=== PATIENT | female | born 1950 | race Caucasian/White ===

== ENCOUNTER 2024-02-27 16:40 | Emergency (ER) | payer MEDICARE, OTHER, SELFPAY ==
[2024-02-27 16:43] VITALS: BP 149/80
--- NOTE | 2024-02-27 17:14 | ED.GENMED ---
History of Present Illness
General
Chief Complaint: Musculo-Skeletal Complaint
Source: patient
Time Seen by Provider: 02/27/24 17:06
History of Present Illness
History of Present Illness:
73-year-old female presents the emergency room for evaluation of swelling of her left leg. Patient states he comes back yesterday. She has pain with weightbearing. Patient went to an urgent care where they performed some x-rays and said there is
no fracture. However they were concerned about the amount of swelling and referred the patient to the emergency room for an ultrasound to rule out any DVT. Patient does have a seizure disorder has been compliant with her medication.
Phy Exam
Physical Exam
Physical Exam:
General: Awake, Alert, Oriented X3. No acute distress.
Vitals: unremarkable
Head: Atraumatic
Eyes: Pupils equal, EOMI
Throat: Airway intact, no exudates
Neuro: Nonfocal
Skin: Warm, dry, no rash
Extremities: pulses equal b/l, moderate swelling from mid lower leg down to ankle. There is some tenderness to palpation over the lateral ankle. Range of motion is intact. No significant tenderness over the fifth metatarsal.
Course
Orders/Labs/Results
Orders:
Orders
02/27/24 17:14
US Periph Venous LOWER Ext LT Urgent
Comment:
Reason For Exam: swelling, recent injury
02/27/24 19:53
Stirrup Splint Left-Treatment ONCE
Vital Signs
Initial and Last Documented VS:
Initial Vital Signs
Temp Pulse Resp BP Pulse Ox
98.1 F 82 18 149/80 97
02/27/24 16:43 02/27/24 16:43 02/27/24 16:43 02/27/24 16:43 02/27/24 16:43
Last Documented Vital Signs
Temp Pulse Resp BP Pulse Ox
98.1 F 78 18 180/77 96
02/27/24 16:43 02/27/24 18:52 07/19/24 18:52 02/27/24 18:52 02/27/24 18:52
MDM/Problems Addressed
Differential Diagnosis Includes:
Ankle sprain, cellulitis, DVT
MDM/Problems Addressed:
Patient does not fact have swelling of the left lower extremity however given the injury she experienced yesterday it seems quite likely they are related. Discussed this with the patient. However she is concerned that 1 doctor suggested she might
have a clot in her leg and therefore we will obtain an ultrasound.
*Critical Care Note
Total Time (30-74mins, 75-104mins- exclusive of procedures): Not Applicable
ED Attending Note
-
Portions of this chart may have been created with voice recognition software.� Occasional wrong word or��sound alike� substitutions may have occurred due to the inherent limitations of voice recognition software.
Discharge Plan
Departure
Patient Disposition: Home (Routine Discharge)
Date of Disposition: 02/27/24
Time of Disposition: 19:52
Patient with high blood pressure during this ER visit?: No
Condition: Fair
Discharge Problem:
Ankle sprain
Instructions: Swelling, Ankle Sprain ED
Referrals:
Georgie Maza PA-C [Family Provider] -
Rai Evans MD [Active] -
Interventions
Interventions:
*Risk Screen - Suicide Last Done: 02/27/24 17:26
*General Assessment Last Done: 02/27/24 16:43
*Neglect/Abuse Screening Last Done: 02/27/24 17:26
ED- Fall Risk Assessment Last Done: 02/27/24 17:26
*ED COVID-19 Vaccine History Last Done: 02/27/24 16:43
ED-Musculoskeletal Assessment Last Done: 02/27/24 17:26
Discharge Date and Time
Print Language: ESTONIAN
[2024-02-27 17:26] VITALS: BMI 27.5
[2024-02-27 18:52] VITALS: BP 180/77
== END 2024-02-27 20:19 | disposition home or self-care (01) ==
LOC: EMR 16:40
PROVIDERS: EMERGENCY PHYSICIAN Emergency Medicine; FAMILY PHYSICIAN Physician Assistant Medical
DX: S93.402A Sprain of unspecified ligament of left ankle, initial encounter (principal); M79.605 Pain in left leg; X58.XXXA Exposure to other specified factors, initial encounter; G40.909 Epilepsy, unspecified, not intractable, without status epilepticus
CPT/HCPCS: 99284; 29515; 93971